=== PATIENT | female | born 1985 | race Caucasian/White ===

== ENCOUNTER 2018-12-29 06:08 | Day surgery (SDC) | payer OTHER ==
[2018-12-29] MEDS ORDERED: MIDAZOLAM 1 MG/ML 2 ML INJ ×3 (08:58)
[2018-12-29] MEDS ORDERED: FENTAnyl 50 MCG/ML VIAL (08:58)
== END 2018-12-29 12:32 | disposition home or self-care (01) ==
LOC: GIL 06:08
DX: K64.8 Other hemorrhoids (principal); K44.9 Diaphragmatic hernia without obstruction or gangrene; K21.9 Gastro-esophageal reflux disease without esophagitis
CPT/HCPCS: 43239; 88305; 88312